=== PATIENT | male | born 1985 | race Asian ===

== ENCOUNTER 2025-03-07 15:33 | Emergency (ER) | payer OTHER, SELFPAY ==
--- NOTE | ~2025-03-07 | XR_ITS ---
CLINICAL HISTORY: post reduction 2 view left shoulder Comparison: None Findings: Bones intact. No dislocations. No significant arthritic change. No erosions. No radiopaque foreign body. IMPRESSION: Relocation of humeral head. This document has been electronically signed by: Lakisha Mason MD on 03/07/2025 17:19:31
--- NOTE | ~2025-03-07 | XR_ITS ---
EXAMINATION: XR SHOULDER, LEFT CLINICAL INFORMATION: fall, pain COMPARISON: None available. TECHNIQUE: Two views of the left shoulder. FINDINGS: Anterior/inferior glenohumeral joint dislocation. AC joint is normal alignment and intact. No obvious fracture although postreduction radiographs recommended. Imaged ribs, lungs, and soft tissues appear normal. XR/XR shoulder LT min 2V IMPRESSION: Anterior/inferior glenohumeral joint dislocation. Electronically signed by: Andrae Smith MD 03/07/2025 04:30 PM EDT
[2025-03-07 15:47] VITALS: BP 151/92; PULSE 88; RESP 18; TEMP 37; O2SAT 97; BMI 23.4
--- NOTE | 2025-03-07 15:47 | ED_ITS ---
HPI - Extremity Problem General Chief complaint: Extremity Injury, Upper Stated complaint: left shoulder dislocation Time Seen by Provider: 03/07/25 16:26 Source: patient Mode of arrival: ambulatory Limitations: no limitations History of Present Illness ED Provider: Trista Skelton PA-C HPI Narrative: Patient is a 39 year old assigned male at with no reported medical history presenting to the emergency department today with left shoulder pain. Patient states that he was working out when he fell - put his arms out, and his left shoulder became dislocated. Patient denies any head strike, loss of consciousness, dizziness, lightheadedness, abdominal pain, nausea, vomiting, fever, chills, blurry vision, double vision, loss of vision, chest pain, difficulty breathing, shortness of breath, back pain, night sweats, pain with urination, increased urinary frequency, increased urinary urgency, blood in his urine or stool, syncope or a near syncopal episode, bowel incontinence, bladder incontinence, or any other complaints at this time. Related Data Allergies Allergy/AdvReac Type Severity Reaction Status Date / Time No Known Allergies Allergy Verified 03/07/25 15:48 Review of Systems Constitutional: Constitutional: Reports no additional constitutional complaints, Denies chills, Denies fever(s) and Denies night sweats Eyes: Eyes: Reports no additional eye complaints, Denies blurry vision, Denies change in vision, Denies diplopia, Denies eye discharge, Denies loss of vision and Denies eye pain ENT: Denies dizziness Cardiovascular: Cardiovascular: Reports no additional cardiovascular complaints, Denies chest pain, Denies lightheadedness, Denies Loss of Consciousness and Denies dyspnea Respiratory: Respiratory: Reports no additional respiratory complaints and Denies dyspnea Gastrointestinal: Gastrointestinal: Reports no additional gastrointestinal complaints, Denies abdominal pain, Denies melena, Denies hematochezia, Denies change in bowel habits and Denies change in stool character Genitourinary: Genitourinary: Reports no additional male genitourinary complaints, Denies hematuria, Denies oliguria, Denies difficulty urinating, Denies dysuria, Denies urinary frequency, Denies urinary hesitancy, Denies urinary incontinence and Denies urinary urgency Musculoskeletal: Musculoskeletal: Reports no additional musculoskeletal complaints, Denies numbness and Denies tingling Comments: left shoulder pain Neurologic: Denies dizziness, Denies loss of vision, Denies numbness and Denies tingling Psychiatric: Psychiatric: Reports no additional psychiatric complaints Endocrine: Endocrine: Reports no additional endocrine complaints Hematologic/Lymphatic: Hematologic/Lymphatic: Reports no additional hematologic/lymphatic complaints Allergic/Immunologic: Allergic/Immunologic: Reports no additional allergic/immunologic complaints PMFSH Past Medical History Attestation statement: The following information was validated with the patient. Source: old records reviewed and nursing notes reviewed Social History Social History Smoked in Last 30 Days: No Advance Directives: No Advance Directives Information Provided: Yes Do you have a plan to hurt others: No Plan Physical Exam Vital Signs: Vital Signs: Last Vital Signs Temp 97.7 F 03/07/25 17:20 Pulse 83 03/07/25 17:20 Resp 16 03/07/25 17:20 BP 129/88 03/07/25 17:20 Pulse Ox 97 03/07/25 17:20 O2 Del Method Room Air 03/07/25 17:20 BMI result Body Mass Index 23.4 Const: General: cooperative, no acute distress, alert and awake Nutritional Appearance: well nourished Orientation/consciousness: patient oriented x3 HEENT: Head: Yes normal to inspection and Yes atraumatic Ears: hearing grossly normal bilaterally and external ears normal General nose exam: Normal external nose present, no nasal discharge noted and no epistaxis Face and sinus: Yes normal facial exam, No abrasion and No laceration Mouth: Normal oral and palatal mucosa present, no drooling and no muffled voice Eyes: General: appearance normal, both eyes and all related structures Periorbital: periorbital findings normal Eyelids: Yes eyelids normal Conjunctivae: conjunctivae normal Pupils: Equal, round and reactive pupils present EOM: EOMs intact bilaterally Neck: Neck: Yes normal visual inspection, Yes full ROM and Yes no lymphadenopathy Resp: Effort & Inspection: normal respiratory effort and able to speak in complete sentences Neuro: General: patient oriented x3, moves all extremities and CN's II-XI intact bilaterally Cranial nerves: Yes Equal, round and reactive pupils present Cognition (Neuro): normal cognition Extrem: Other: left shoulder deformity limited ROM of the left shoulder secondary to pain General: Yes capillary refill normal Psych: Appearance: grossly normal Mental Status: mental status grossly normal Affect: normal affect Attitude: cooperative Thought process: Normal thought process present Thought content: Normal thought content present Insight: Good insight present (Psych) Course Course Course Narrative: This is an RME performed by Junior Elizondo CNP: Additional HPI, ROS, PE not included below will be deferred to primary provider. Patient is a 39-year-old male who presents emergency department with expressed concern for left shoulder dislocation. Reports that he had an accidental mechanical fall, landing onto outstretched hand with resultant pain to the left shoulder. Denies pain to the elbow wrist or hand. Denies any numbness or tingling. Plan: XR Medications Administered Discontinued Medications Generic Name Dose Route Start Last Admin Trade Name Freq PRN Reason Stop Dose Admin Morphine Sulfate 4 mg 03/07/25 16:26 03/07/25 16:56 Morphine Sulfate 4 Mg/Ml Cartridge IM 03/07/25 16:27 Not Given ONCE ONE Protocol Medical Decision Making Medical Decision Making MDM Narrative: Patient is a 39 year old assigned male at with no reported medical history presenting to the emergency department today with left shoulder pain. Patient's physical exam was as noted in the physical exam portion of this note and consistent with a left shoulder dislocation. Patient's left shoulder x-ray showed an anterior shoulder dislocation. I explained my physical exam findings as well as all test results to the patient. I answered all questions asked by the patient. Patient's left shoulder was reduced, without incident. Patient's PMS was intact prior to and after reduction. Patient's left upper extremity was placed in a sling without incident. Patient's repeat left shoulder x-ray confirmed reduction. I stressed the importance of the patient taking his medication as directed (either prescribed or as the over the counter packaging recommends). I stressed the importance of the patient following up with his primary care provider and an orthopedic provider. I stressed the importance of the patient returning to the emergency department immediately if his symptoms were to worsen or if he were to develop any dizziness, shortness of breath, difficulty breathing, chest pain, blurry vision, loss of vision, nausea, vomiting, abdominal pain, fever, chills, back pain, or any other complaints. Patient verbalized agreement and understanding with this treatment plan and discharge. Differential Diagnosis Differential Diagnoses: The differential diagnosis associated with the presentation includes Shoulder dislocation Admission/Observation Consideration of admission/observation: Escalation of care including admission/observation considered Patient would have been admitted to the hospital had his work up had any findings where hospital admission was appropriate and his clinical presentation warranted hospital admission. Independent Interpretation I performed an independent interpretation of an: Plain X-Ray Interpretation: My interpretation is in agreement with the radiologist's impression of these imaging studies. EXAMINATION: XR SHOULDER, LEFT CLINICAL INFORMATION: fall, pain COMPARISON: None available. TECHNIQUE: Two views of the left shoulder. FINDINGS: Anterior/inferior glenohumeral joint dislocation. AC joint is normal alignment and intact. No obvious fracture although postreduction radiographs recommended. Imaged ribs, lungs, and soft tissues appear normal. XR/XR shoulder LT min 2V IMPRESSION: Anterior/inferior glenohumeral joint dislocation. Electronically signed by: Andrae Smith MD 03/07/2025 04:30 PM EDT RP Dictated By: Andrae Smith MD Signed By: Electronically signed by Andrae Smith MD 03/07/25 [id number] CLINICAL HISTORY: post reduction 2 view left shoulder Comparison: None Findings: Bones intact. No dislocations. No significant arthritic change. No erosions. No radiopaque foreign body. IMPRESSION: Relocation of humeral head. This document has been electronically signed by: Lakisha Mason MD on 03/07/2025 17:19:31 Dictated By: Lakisha Mason MD Signed By: Electronically signed by Lakihsa Mason MD 03/07/25 9877 Radiology Impression Discussion of test interpretation with radiology: I have reviewed the radiologist's reading. Procedures Orthopedic Joint Reduction Joint #1: Time Out Performed: Yes Side: left Joint Reduction Location: shoulder Analgesia: none Shoulder Technique Used (if applicable): Ariel Post-reduction neuro exam: intact Post-reduction vascular: intact Post Reduction X-Ray Obtained: Yes Post Reduction X-Ray Results: reduced Splint Applied: Yes Patient Tolerated Procedure: well Orthopedic Splinting/Casting Injury #1: Side: left Upper Extremity Immobilizer: sling/shoulder immobilizer Discharge Plan Discharge Clinical Impression: Dislocated shoulder Patient Disposition: Home, Self-Care Instructions: Shoulder Dislocation (ED) Additional Instructions: You should wear the sling for 2 weeks. For 10 minutes every 1 hour when wearing the sling you should remove it and perform range of motion with your left ELBOW ONLY to avoid freezing the joint. Do NOT reach over head with your left arm until told to do so by either your primary care provider or an logging specialist. Follow up with your primary care provider and the orthopedic team. Return to the emergency department immediately if your symptoms worsen or if you develop any numbness, tingling, dizziness, shortness of breath, difficulty breathing, chest pain, blurry vision, loss of vision, nausea, vomiting, abdominal pain, fever, chills, back pain, or any other complaints. Please see the information below about our Patient Portal. If you are not yet enrolled in the [facility] Patient Portal, you will receive an enrollment email invitation following your visit to any [facility] setting. You may also self-enroll in the Patient Portal by visiting our website: [email or web address] The following information is required to access the Patient Portal: - Your [facility] Medical Record Number - Your personal home email address (must match what is in your electronic [facility] record, Registration staff can assist with this) - Name - Date of Capabilities of the Patient Portal: - Message some providers - View upcoming appointments - Access your health summary, medical history, and visit history - View current conditions and allergies - View procedure and lab results - View your medications, including guidelines, side effects, and precautions - Complete pre-appointment questionnaires requested by your provider - Ready summary reports of your office visits and procedures To access the Patient Portal Mobile [employer], follow these directions: - Search [employer] in the [employer] Store or [employer] Store - Download the [employer] - Search for [facility] - Enter your login/password Referrals: [facility] [Provider Group] (Call to establish and follow up with a primary care provider. If you already have a primary care provider, please follow up with them.) [facility], [place] [Provider Group] (Call to establish and follow up with a primary care provider. If you already have a primary care provider, please follow up with them.) [facility], [place] [Provider Group] (Call to establish and follow up with a primary care provider. If you already have a primary care provider, please follow up with them.) [facility], [facility] [Provider Group] (Call to establish and follow up with a primary care provider. If you already have a primary care provider, please follow up with them.) [facility], [facility] [Provider Group] (Call to establish and follow up with a primary care provider. If you already have a primary care provider, please follow up with them.) [facility] [Provider Group] (Call to establish and follow up with an orthopedic provider. ) Stand Alone Forms: Work/School Release Interventions: ED Discharge Assessment Last Done: 03/07/25 17:20 Discharge Date/Time: 03/07/25 17:22 Print Language: Australian
--- NOTE | 2025-03-07 16:15 | PC.NURSE ---
Patient is a 39 year old assigned male at with no reported medical history presenting to the emergency department today with left shoulder pain. Patient states that he was working out when he fell - put his arms out, and his left shoulder became dislocated. Patient denies any head strike, loss of consciousness, Shoulder xray completed and showed dislocation. Positive distal pulse and csm noted to affected extremity.
[2025-03-07 16:31] VITALS: BP 142/95; PULSE 82; RESP 18; TEMP 36.2; O2SAT 100
--- OUTSIDE RECORDS SUMMARY | 2025-03-07 16:38 | XMS_ITS | Continuity of Care Document ---
Author Name [facility] Organization [facility] Care Team Providers Care Patient Registration Rep Name Role Phone [facility] Unavailable Unavailable Problems Combined list of problems from Department of Defense and Veterans Affairs facilities. It does not include entries that were removed or entered in error. Problem Status Onset Date Problem Type Date of Resolution Comments Source Dry eye syndrome of bilateral lacrimal glands Active 05/30/2024 Diagnosis [facility] Marco A Hernandez-Bli ss Tinnitus, right ear Active 05/30/2024 Diagnosis [facility] Marco A Hernandez-Bli EXAM, OCCUPATIONAL, ALF OR SEPARATION FROM [employer] UNIFORMED SERVICE, LONG Active 05/29/2024 Diagnosis [facility] Marco A Mary-Bli Depression screening negative Active 05/29/2024 Diagnosis 0108A[facility] Marco A Mary-Bli ss ASSESSMENT, POST-DEPLOYMENT, DOCUMENTED ON FH0383 Active 05/28/2024 Diagnosis 0[facility] Marco A Mary-Bli Encounter for screening examination for other mental health and behavioral disorders Active 05/28/2024 Diagnosis 0108[facility] Marco A Mary-Bli ss ASSESSMENT, PRE-DEPLOYMENT, DOCUMENTED ON [id number] Active Condition [facility] Marco A Hernandez-Bli EXAM/ASSESSMENT, OCCUPATIONAL, 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 Medication Details Route Status Patient Instructions Prescription Expires Prescription Number Last Dispense Date Ordering Provider Order Date Order Qty Source Artificial Tears ophthalmic solution 1 drop(s), Eye-Both , BID, PRN dry eyes, # 15 mL, 0 total refill(s ), Gonzalez iasaniya, Pharmacy : [facility] Both eyes Ordered 06/29/20242023 15.0 0108C-A Marco A Fuller Refresh Plus 0.5% (PF) eye drops UD [30EA] = 1 drop(s), Eye-Both , BID, # 60 EA, 0 total refill(s ), Hard Stop Both eyes Complet ed 07/01/2024 2023 60.0 Ambulat ory Pharmac y Allergies, Adverse Reactions, Alerts Combined list of allergies from Department of Defense and Veterans Affairs facilities. It does not include entries that were removed or entered in error. Substance Category Reaction Severity Reaction type Status Date Reported Comments Source No Known Allergies Drug allergy (disorder) active 01/01/2024 [facility] [place] Immunizations Combined list of available immunizations from the Department of Defense and Veterans Affairs facilities. Immunization Series Date Given Administered By Site Reaction Lot Number CVX Code Drug Digital Marketing Intern Status Comments Source measles/mumps /rubella virus vaccine 2023 SANJEEV Arm, right upper [id number] [employer] complet ed measles/m umps/rube lla virus vaccine 01/01/24 Given 0108A-A Marco A Fuller anthrax vaccine 2023 SANJEEV Shoul mary, left (delt oid) [id number] [employer] complet ed anthrax vaccine 01/01/24 Given 0108A-A Marco A Fuller influenza, injectable, quadrivalent- pf 2020 [id number] Se[employer] complet ed influenza , injectabl e, quadrival ent-pf 08/10/21 Given Ambulat ory Pharmac y varicella virus vaccine 2020 [id number] [employer]ck [employer] complet ed varicella virus vaccine 12/18/20 Given Ambulat ory Pharmac y tetanus, diphtheria, acellular pertu is 2020 [id number] sanofi pasteur complet ed tetanus, diphtheri a, acellular pertussis 12/18/20 Given Ambulat ory Pharmac y measles/mumps /rubella virus vaccine 2020 [id number] [employer] complet ed measles/m umps/rube lla virus vaccine 2/12/21 Given Ambulat ory Pharmac y hepatitis A adult vaccine 2020 [id number] [employer] complet ed hepatitis A adult vaccine 12/18/20 Given Ambulat ory Pharmac y COVID Vaccine Moderna 2020 [id number] complet ed COVID Vaccine Moderna 12/08/20 Given Ambulat ory Pharmac y influenza, injectable, quadrivalent 2019 [id number] sanofi pasteur complet ed influenza , injectabl e, quadrival ent 09/30/20 Given Ambulat ory Pharmac y hepatitis B adult vaccine 2012 [id number] 43 Unknown complet ed hepatitis B adult vaccine 01/31/13 Given Ambulat ory Pharmac y tetanus-dipht h toxoids (Td) adult/adol 2012 UNK 09 Unknown complet ed tetanus-d iphth toxoids (Td) adult/ado l 01/31/13 Given Ambulat ory Pharmac y hepatitis B adult vaccine 2011 UNK 43 Unknown complet ed hepatitis B adult vaccine 06/22/12 Given Ambulat ory Pharmac y hepatitis B adult vaccine 2011 UNK 43 Unknown complet ed hepatitis B adult vaccine 05/23/12 Given Ambulat ory Pharmac y tetanus, diphtheria, acellular pertu is 2011 UNK 115 Unknown complet ed tetanus, diphtheri a, acellular pertussis 05/23/12 Given Ambulat ory Pharmac y Results Combined list of recent chemistry, hematology and other laboratory results from Department of Defense and Veterans Affairs, ranging from 15 months to all on record, depending upon the facility. Order Name Results Value Reference Range Date Interpretation Specimen Comments Source Infectiou s Disease HIV-1/2 AG/AB 4G CDD LC NEGATIVE 05/28 Result Comment: Performed At: [facility] [address] [facility] [address] [place] [address] BLANE KOFFI PHD Ph:[phone] 0108A-AM Yehuda Reed Infectiou s Disease Source of Test.LC PostDepSt orage (05/28/24 7:30 AM) 05/28 N 0108A-AM C Marco A Reed Infectiou s Disease HIV-1/2 AG/AB 4G CDD LC NEGATIVE 01/01 Result Comment: Performed At: 1 [facility] [address] [facility] [address] [place] [address] BLANE DAVIDN PHD Ph:[phone] 0108A-AM C Marco A Reed Infectiou s Disease Source of Test.LC Pre Deploy (01/01/24 8:15 AM) 01/01 N 0108A-AM C Marco A Reed Hematolog y Sickle Cell Screen Negative 1 (01/01/24 8:15 AM) 01/01 N Interpretive Data: This is only a screen. Positive results should be referred for confirmatory testing. 0108A-AM C Marco A Reed Molecular Infectiou s Disease Reason for Test? Screening (12/14/22 8:50 AM) 12/14 N 0109A-AM C [facility] Molecular Infectiou s Disease SARS-CoV -2 ANTIGEN Not Detected (12/14/22 8:50 AM) 12/14 N 0109A-AM C [facility] Vital Signs Combined list of inpatient and outpatient Vital Signs from Department of Defense and Veterans Affairs, ranging from 12 months to all on record, depending upon the facility. Vital Sign Value Date Comments Source Respiratory Rate 16 br/min 05/30/2024 14:15:[address] [place] [address] Marco A Wagner Blood Pressure Manual Automatic 05/30/2024 14:15:[address] [place] [address] Marco A Wagner Systolic Blood Pressure 125 mm[Hg] 05/30/20 24 14:15:[address] [place] [address] Marco A Wagner Diastolic Blood Pressure 85 mm[Hg] 024 14:15:[address] [place] [address] Marco A Wagner Temperature Oral 36.7 Odalys 05/30/2024 14:15:[address] [place] [address] Marco A Wagner Peripheral Pulse Rate 71 bpm 05/30/2024 14:15:00 [facility] Marco A Wagner BP Site Left arm 05/30/2024 14:15:[address] [place] [address] Marco A Wagner Mean Arterial Pressure, Calc 98 mm[Hg] 05/30/2024 14:15:00 [facility] Marco A Wagner Systolic Blood Pressure 134 mm[Hg] 01/01/20 13:13:00 0[facility] Marco A Wagner Diastolic Blood Pressure 77 mm[Hg] 024 13:13:00 0108[facility] Marco A Wagner Temperature Temporal Artery 36.5 Odalys 01/01/2024 13:13:00 [facility] Marco A Wagner Peripheral Pulse Rate 69 bpm 01/01/2024 13:13:00 0[facility] Marco A Wagner Mean Arterial Pressure, Calc 83 mm[Hg] 05/29/2024 18:28:00 0[facility] Marco A Wagner Systolic Blood Pressure 106 mm[Hg] 05/29/20 18:28:00 0[facility] Marco A Wagner Diastolic Blood Pressure 72 mm[Hg] 024 18:28:00 [facility] Marco A Wagner Temperature Oral 36.9 Odalys 05/29/2024 18:28:00 0[facility] Marco A Wagner Peripheral Pulse Rate 64 bpm 05/29/2024 18:28:00 [facility] Marco A Wagner Encounters Combined list of: 1) Encounters from Department of Veterans Affairs facilities going backup to the last 18 months, not all VA inpatient encounters are included; 2) Encounters from the Department of Defense facilities going backup to 280 months. Location Location Details Encounter Type Encounter Number Reason For Visit Attending Provider ADM Date DC Date Status Disposition Source [place], [place]([facility] OUTPATIENT [id number] OCS Physica l- labs done in AM out of area medical recruit ELA CHAMBERS 11/21 Released w/o Limitations [place]([facility] [place](Kaylynn sanders) OUTPATIENT [id number] Notes Entered by: Gia GUTIÉRREZ 26 Nov 2019 0931 ------- ------- ------- ------- -- Annual Hearing Test SINDI GUTIÉRREZ 11/26 [facility] Limitations [facility] [place] [place] [address] [place]PATIENT [id number] Notes Entered by: KRISH ALARCON 26 Nov 2019 1001 ------- ------- ------- ------- -- ocs THOM MELARA 11/26 [facility]ased w/o Limitations [facility] [place] [address] [place] TELE CONSULT [id number] Notes Entered by: Rashmi CHAMBERS 04 Dec 2019 1446 ------- ------- ------- ------- -- needs CXR. ELA CHAMBERS 12/04 [place], [place]([facility] [address] [place] [address] Mary Tiffanie Mass Readiness [id number] EXAM, OCCUPAT IONAL, RETIREM ENT OR SEPARAT ION FROM [facility] ED SERVICE , LONG,En counter for screeni ng for depress ion,ASS ESSMENT , POST-[place]UB[place] ON TI6383, Encount er for screeni ng examina tion for other mental health and behavio ral disorde rs [facility] 05/28 Discharge Disposition: Released Without Limitations -A Marco A Fuller [facility] [id number] Tinnitu s, right ear,Dry eye syndrom e of bilater al lacrima l glands FRANKI ALOBOFLORE S 05/30 Discharge Disposition: Home or Self Care 107A Marco A barberTiffanie Procedures Combined list of: 1) Procedures from Department of Veterans Affairs facilities going back up to thelast 18 months, not all VA non-surgical procedures are included; 2) All procedures from the Department of Defense facilities. Procedure Procedure Type Code Date Perfomer Comments Sourc e No data available for this section Ambulato ry Pharmacy -Supervised Services Provision Of Special Supplies -Supervised Services Provision Of Special Supplies 14535 SINDI GUTIÉRREZ [facility] Testing Audiometry Group Testing 99803 BROCK SINDI E [facility] Ear Protector Attenuation Measurements Ear Protector Attenuation Measurements 56462 SINDI GUTIÉRREZ [facility] Ear mold/insert, not disposable, any type SINDI GUTIÉRREZ [facility] Threshold Audiogram (Pure Tone) Automated Threshold Audiogram (Pure Tone) Automated 0208T BROCK SINDI E [facility] Audiogram (Screening) Audiogram (Screening) 11999 SINDI GUTIÉRREZ [facility] Screening Test Of Visual Acuity, Quantitative, Bilateral Screening Test Of Visual Acuity, Quantitative, Bilateral 24560 THOM MELARA [facility] SCREENING TEST OF VISUAL ACUITY, QUANTITATIVE, BILATERAL 0 [facility] SCREENING TEST, PURE TONE, AIR ONLY 0 [facility] Social History Combined list of available smoking, tobacco, and other social history from Department of Defense and Veterans Affairs facilities. Social History Type Response Date Comment [facility] saniya Tobacco Cigarette use: Never-cigarette user. Other Tobacco use: Never-other tobacco user (not cigarettes). Ambulatory Pharma cy Sexual Orientation Ambula tory Pharmacy Gender identity Ambulator y Pharmacy Sex Representation Male (finding) Un known Organization This section is an empty social history section. [facility] Assessment and Plan Combined list of future care activities from Department of Defense and Veterans Affairs facilities (e.g., assessment and plan notes, appointments, orders, and referrals). Additional future care activities may be listed in the Plan of Care section. Result Assessment and Plan Date Source Assessment and Plan Extracted from:Title : Office Clinic Note- B dry eye, R tinnitus Author: FRANKI WILSON MD Date: 05/30/24 1.?Tinnitus, right ear SM DEMOBs this week, he will need to follow up with civilian PCM for referral to Audiology/ENT for follow up on this ? 2.?Dry eye syndrome of bilateral lacrimal glands Ordered: ocular lubricant(Artificial Tears ophthalmic solution), 1 drop(s), Eye-Both, BID, PRN dry eyes, # 15 mL, 0 total refill(s), Maintenance, 1 drop(s) Eye-Both BID,x30 days,PRN:dry eyes, Pharmacy: [facility] [Not filled] ? 03/07/2025 [facility] Functional Status Combined list of recent functional and cognitive assessments recorded at Department of Defense and Veterans Affairs (VA).VA Functional [place] Measurement (FIM) Scale: 1 = Total Assistance (Subject = 0% +), 2 = Maximal Assistance (Subject = 25% +), 3 = Moderate Assistance (Subject = 50% +), 4 = Minimal Assistance (Subject = 75% +), 5 = Supervision, 6 = Modified [place] (Device), 7 = Complete [place] (Timely, Safely). Assessment Date/Time Source Assessment Type Assessment Skill Assessment Score Assessment Details No data available for this section
--- NOTE | 2025-03-07 17:00 | PC.NURSE ---
Planning to reduce shoulder and patient laid face down on the stretcher and self-reduced shoulder. Post reduction xray completed and sling applied.
[2025-03-07 17:10] VITALS: BP 129/88; PULSE 83; RESP 16; TEMP 36.5; O2SAT 97
[2025-03-07 17:20] VITALS: BP 129/88; PULSE 83; RESP 16; TEMP 36.5; O2SAT 97
== END 2025-03-07 17:22 | disposition home or self-care (01) ==
PROVIDERS: Emergency Provider Emergency Medicine
DX: S43.005A Unspecified dislocation of left shoulder joint, initial encounter (principal); W18.30XA Fall on same level, unspecified, initial encounter; Y93.B9 Activity, other involving muscle strengthening exercises; Y92.9 Unspecified place or not applicable; Y99.9 Unspecified external cause status; M25.512 Pain in left shoulder
CPT/HCPCS: 23650; 73030; 99284

== ENCOUNTER → 2025-03-07 15:48 | Outpatient (BNV) | payer OTHER, SELFPAY | PROVIDERS: Emergency Provider Emergency Medicine; Visit Provider Radiology Diagnostic Radiology | DX: S43.012A Anterior subluxation of left humerus, initial encounter (principal) | CPT/HCPCS: 73030 ==